=== PATIENT | male | born 1985 | race African-American/Black ===

== ENCOUNTER 2020-01-09 19:06 | Emergency (ER) | payer MEDICAID ==
[~2020-01-09] VITALS: Ht 175.3 cm; Wt 86.2 kg
[2020-01-09] MEDS ORDERED: LIDOCAINE VISCUS 2% 15 ML UDC MM ONE (19:45)
[2020-01-09] MEDS ORDERED: MAG HYDROX/AL HYDROX/SIMETH 30 ML LIQUID UDC PO ONE (19:45)
[2020-01-09] MEDS ORDERED: LIDOCAINE VISCUS 2% 15 ML UDC ONE (19:49)
[2020-01-09] MEDS ORDERED: MAG HYDROX/AL HYDROX/SIMETH 30 ML LIQUID UDC ONE (19:49)
[2020-01-09 20:05] LABS: BASOPHILS % (AUTO) 1.1 % (0.0-2.0); EOSINOPHILS # (AUTO) 0.1 K/uL (0.0-0.7); EOSINOPHILS % (AUTO) 3.1 % (0.0-7.0); HEMATOCRIT 41.6 % (36.7-47.1); HEMOGLOBIN 13.7 g/dL (12.5-16.3); LYMPHOCYTES # (AUTO) 1.9 K/uL (20.0-40.0); MEAN CORPUSCULAR HEMOGLOBIN 28.8 uug (23.8-33.4); MEAN CORPUSCULAR HGB CONC 33 g/dL (32.5-36.3); MEAN CORPUSCULAR VOLUME 87.1 fL (73.0-96.2); MONOCYTES # (AUTO) 0.4 K/uL (2.0-10.0); MONOCYTES % (AUTO) 10.5 % (0.0-11.0); NEUTROPHILS # (AUTO) 1.4 K/uL (1.8-8.9); NEUTROPHILS % (AUTO) 37.3 % (38.5-71.5); PLATELET COUNT (AUTO) 269 K/uL (152-348); RED BLOOD CELL COUNT(AUTO) 4.77 MIL/uL (4.06-5.63); WHITE BLOOD COUNT (AUTO) 3.9 K/uL (3.6-10.2)
[2020-01-09 20:05] LABS: *BILIRUBIN,URIN 1+ (NEGATIVE); *BLOOD, URINE NEGATIVE (NEGATIVE); *COLOR,URINE DARK YELLOW (YELLOW); *KETONES,URINE NEGATIVE (NEGATIVE); LEUKOCYTE ESTERASE ,URINE NEGATIVE (NEGATIVE); NITRITE, URINE NEGATIVE (NEGATIVE); PH,URINE 5.5 (5.0-8.0); UGLUCOSE NEGATIVE (NEGATIVE)
[2020-01-09 20:10] LABS: CARBON DIOXIDE 33 mmol/L (21-32); CHLORIDE 103 mmol/L (98-107); CREATININE 0.9 mg/dL (0.6-1.3); GLUCOSE 102 mg/dL (74-106); POTASSIUM 3.3 mmol/L (3.5-5.1); UREA NITROGEN, BLOOD 6 mg/dL (7-18)
[2020-01-09 20:12] LABS: *CLARITY,URINE HAZY (CLEAR)
[2020-01-09 20:13] LABS: MUCUS,URINE MANY /LPF (0-FEW); SQUAMOUS EPITHELIAL CELL,UR FEW /HPF (NONE SEEN)
[2020-01-09] MEDS ORDERED: diphenhydrAMINE 25 MG CAP PO ONE ×2 (20:15→20:48)
[2020-01-09] MEDS ORDERED: OLANZAPINE 5 MG TABLET PO ONE (20:15)
[2020-01-09 20:22] LABS: ETHANOL < 3 MG/DL (0-0)
[2020-01-09 20:24] LABS: ALANINE AMINOTRANSFERASE 25 U/L (16-63); ALKALINE PHOSPHATASE 71 U/L (50-136); ASPARTATE AMINOTRANSFERASE 27 U/L (15-37); BILIRUBIN,DIRECT 0.1 mg/dL (0.0-0.2); BILIRUBIN,TOTAL 0.2 mg/dL (0.2-1.0); TOTAL PROTEIN, SERUM 8.1 g/dL (6.4-8.2)
[2020-01-09 20:24] LABS: *AMPHETAMINE, URINE POSITIVE (NEGATIVE); *BARBITURATE, URINE NEGATIVE (NEGATIVE); *CANNABINOID, URINE NEGATIVE (NEGATIVE); *COCCAINE, URINE NEGATIVE (NEGATIVE); *OPIATE, URINE NEGATIVE (NEGATIVE); *PHENCYCLIDINE SCREEN,URINE NEGATIVE (NEGATIVE)
[2020-01-09 20:26] LABS: ACETAMINOPHEN < 2.0 ug/mL (10-30)
[2020-01-09] MEDS ORDERED: POTASSIUM CHLORIDE 20 MEQ TAB.PRT.SR PO ONE (20:45)
[2020-01-09] MEDS ORDERED: POTASSIUM CHLORIDE 20 MEQ TAB.PRT.SR ONE (20:48)
[2020-01-09] MEDS ORDERED: OLANZAPINE 5 MG TABLET ONE (20:48)
--- NOTE | 2020-01-09 20:48 | NUR ---
Medically cleared by Dr Barber.
--- NOTE | 2020-01-09 21:53 | NUR ---
Trini Mahajan from [facility] here to eval patient.
--- NOTE | 2020-01-10 00:05 | NUR ---
Patient sleeping with no distress noted.
--- NOTE | 2020-01-10 05:41 | NUR ---
Patient given written and verbal discharge instructions. Patient verbalizes understanding of instructions. Patient is ambulatory with steady gait. Refuses offer of senior care placement. Patient given list of available shelters in surrounding area.
[2020-01-10 05:42] VITALS: BP 118/79
== END 2020-01-10 05:43 | disposition home or self-care (01) ==
LOC: ER 19:06
DX: F15.10 Other stimulant abuse, uncomplicated (principal); R44.3 Hallucinations, unspecified; F12.10 Cannabis abuse, uncomplicated; Z60.2 Problems related to living alone; Z79.899 Other long term (current) drug therapy; Z76.5 Malingerer [conscious simulation]
CPT/HCPCS: 36415; 80048; 80076; 80307; 81000; 81001; 85025; 99283; G0480 ×2; G0481; Q0163; A4663

== ENCOUNTER 2020-01-10 06:55 | Emergency (ER) | payer MEDICAID ==
[~2020-01-10] VITALS: Ht 177.8 cm; Wt 77.1 kg
--- NOTE | 2020-01-10 07:15 | NUR ---
Dr. Mistry at bedside for eval.
--- NOTE | 2020-01-10 07:29 | NUR ---
Patient given written and verbal discharge instructions. Patient verbalizes understanding of instructions. Refused to sign discharge instructions. Patient is ambulatory with steady gait. Refuses offer of [facility] placement. Patient given list of available shelters in surrounding area.
[2020-01-10] MEDS ORDERED: ACETAMINOPHEN ES 500 MG TABLET PO ONE (07:30)
[2020-01-10 07:32] VITALS: BP 116/70
== END 2020-01-10 07:28 | disposition home or self-care (01) ==
LOC: ER 06:56
DX: F15.20 Other stimulant dependence, uncomplicated (principal); F12.10 Cannabis abuse, uncomplicated; Z76.5 Malingerer [conscious simulation]; Z59.0 Homelessness; Z60.2 Problems related to living alone
CPT/HCPCS: 93005; A4663